=== PATIENT | male | born 1970 ===

== ENCOUNTER → 2023-02-11 15:46 | Outpatient (BNVA) | payer OTHER, SELFPAY | PROVIDERS: Family Provider Internal Medicine; PCP Internal Medicine; Visit Provider Internal Medicine Cardiovascular Disease | DX: R07.9 Chest pain, unspecified (principal); E78.5 Hyperlipidemia, unspecified; R00.1 Bradycardia, unspecified; F43.10 Post-traumatic stress disorder, unspecified | CPT/HCPCS: 93005; 99204 ==

== ENCOUNTER 2023-02-28 11:41 | Outpatient (CLI) | payer OTHER, SELFPAY ==
[2023-02-28 13:06] VITALS: BMI 25.2
--- NOTE | 2023-02-28 13:12 | ECG_ITS ---
[facility] Test Date: 2023-02-28 Pat Name: Mk Coelho Department: Room: Gender: Male Local [employer]: : 1970 Requested By: Renee Singh Order Number: [id number] Fred MD: Renee Singh M.D. Interpretive Statements NAME OF STUDY: TREADMILL STRESS TEST INDICATION: Chest Pain; Chest Pressure PROCEDURE: At the baseline, the patient's blood pressure was 123/69 with a heart rate of 66. The baseline electrocardiogram showed normal sinus rhythm with normal ST-Ts.. The patient exercised for 9 minutes and 55 seconds on a standard [place] protocol. Patient attained a maximum heart rate of 159 beats per minute(96% of the maximum predicted heart rate) with a blood pressure at the peak exercise of 109/53 mm Hg. The EKG at the peak exercise revealed [address] depression in lead II, III and aVF. Patient did not have any chest pain or any significant cardiac arrhythmias with the exercise During the recovery phase, there were no new changes. Blood pressure at the end of the recovery phase was 155/89 mm Hg with a heart rate of 88 per minute. CONCLUSION: 1. Abnormal EKG response to treadmill exercise suggestive of inferior wall ischemia 2. No exercise-induced chest pain or cardiac arrhythmia 3. Good exercise tolerance, attained a maximum of 13.5 METs 4. Exercise-induced low blood pressure, may suggest ischemia Electronically Signed On 03-08-2023 10:55:52 [employer] by Renee Singh M.D. [email or web address]
[2023-02-28 14:51] VITALS: BP 128/67; PULSE 88
== END 2023-02-28 11:42 | disposition home or self-care (01) ==
PROVIDERS: Family Provider Internal Medicine; PCP Internal Medicine; Visit Provider Internal Medicine Cardiovascular Disease
DX: R07.9 Chest pain, unspecified (principal); R94.39 Abnormal result of other cardiovascular function study
CPT/HCPCS: 93017; 93306

== ENCOUNTER 2024-12-10 08:21 | Outpatient (CLI) | payer OTHER, SELFPAY ==
--- NOTE | 2024-12-10 08:31 | CT_ITS ---
WS: [id number] LDCT LUNG CANCER SCREENING HISTORY: HX OF TOBACCO USE TECHNIQUE: Axial imaging performed from the apices to 1 cm below the costophrenic angles. Coronal and sagittal reformats are submitted with axial MIP series. All CT scans at [facility] use at least one of these dose optimization techniques: automated exposure control; mA and/or kV adjustment per patient size (includes targeted exams where dose is matched to clinical indication); or iterative reconstruction. DLP: 77.70 mGy.cm DIvol: Mean CTDIvol: 1.50 (mGy) COMPARISON: None available. Diagnostic quality: Satisfactory Lungs: Mild dependent changes at the lung bases. 4 mm nodule along the RIGHT minor fissure. No suspicious masses or nodules. No endobronchial lesions. Heart: Normal size heart with no pericardial effusion.. Other findings: Small hiatal hernia. Cholelithiasis. No evidence for acute cholecystitis. No adrenal mass. CT/CT lung screening [id number] IMPRESSION: LUNG-RADS: 2S-Benign Appearance or Behavior with Significant Findings FOLLOW UP: 12 Month: Continue annual screening with LDCT OTHER FINDINGS (S MODIFIER): Cholelithiasis without acute cholecystitis.
== END 2024-12-10 08:22 | disposition home or self-care (01) ==
LOC: RAD 08:23
PROVIDERS: Family Provider Internal Medicine; PCP Internal Medicine; Visit Provider Family Medicine
DX: Z12.2 Encounter for screening for malignant neoplasm of respiratory organs (principal); Z87.891 Personal history of nicotine dependence; R91.1 Solitary pulmonary nodule; K44.9 Diaphragmatic hernia without obstruction or gangrene; K80.20 Calculus of gallbladder without cholecystitis without obstruction
CPT/HCPCS: 71271

== ENCOUNTER 2025-02-02 07:30 | Outpatient (CLI) | payer OTHER, SELFPAY ==
--- NOTE | 2025-02-02 07:36 | US_ITS ---
WS: [id number] TESTICULAR ULTRASOUND HISTORY: Left Groin Fullness COMPARISON: None available. TECHNIQUE: Real-time and color Doppler imaging utilized to perform a testicular ultrasound. Right testicle: 4.3 cm x 2.7 cm x 2.0 cm. Normal size and echogenicity. No mass or torsion. Normal color Doppler is present throughout. Systolic and diastolic velocities are both present. Small complex hydrocele. Right epididymis: Normal epididymis with no increased vascularity. Left testicle: 3.8 cm x 2.7 cm x 1.8 cm. Normal size and echogenicity. No mass or torsion. Normal color Doppler is present throughout. Systolic and diastolic velocities are both present. No significant hydrocele. Left epididymis: Normal epididymis with no increased vascularity. Increased soft tissue in the LEFT inguinal canal. During Valsalva there is movement of the soft tissues. This is most consistent with fat-containing inguinal hernia. No loop of GI tract is identified. No incarceration of soft tissues. US/US scrotum [id number] IMPRESSION: 1. Normal testicular ultrasound. 2. No testicular mass or torsion. 3. LEFT inguinal hernia containing fat only. No incarceration.
== END 2025-02-02 07:31 | disposition home or self-care (01) ==
LOC: RAD 07:31
PROVIDERS: Family Provider Internal Medicine; PCP Internal Medicine; Visit Provider Family Medicine
DX: R10.812 Left upper quadrant abdominal tenderness (principal); N43.3 Hydrocele, unspecified; K40.90 Unilateral inguinal hernia, without obstruction or gangrene, not specified as recurrent
CPT/HCPCS: 76870

== ENCOUNTER → 2025-02-24 08:15 | Outpatient (BNVA) | payer OTHER, SELFPAY | PROVIDERS: Family Provider Internal Medicine; PCP Internal Medicine; Visit Provider Dermatology | DX: L21.8 Other seborrheic dermatitis (principal); L72.0 Epidermal cyst; L82.1 Other seborrheic keratosis; D18.01 Hemangioma of skin and subcutaneous tissue; D48.5 Neoplasm of uncertain behavior of skin | CPT/HCPCS: 11102; 99203 ==